=== PATIENT | female | born 1975 | race Asian ===

== ENCOUNTER 2023-05-07 07:00 | Outpatient (CLI) | payer OTHER | END 2023-05-07 07:01 | disposition home or self-care (01) | LOC: BICULT 07:00 | PROVIDERS: ATTEND Nurse Practitioner Family | DX: R31.21 Asymptomatic microscopic hematuria (principal); R10.11 Right upper quadrant pain; K80.20 Calculus of gallbladder without cholecystitis without obstruction | CPT/HCPCS: 76700; 76856 ==